=== PATIENT | female | born 1965 | race African-American/Black ===

== ENCOUNTER 2022-07-14 16:23 | Inpatient (IN) | payer OTHER ==
[~2022-07-14] VITALS: Ht 172.7 cm; Wt 67.6 kg
[2022-07-14] MEDS ORDERED: IPRATROPIUM BROMIDE (0.02%) 0.5MG/2.5ML NEB HHN STA (16:28)
[2022-07-14] MEDS ORDERED: ALBUTEROL (0.083%) 2.5MG/3ML NEB HHN STA (16:28)
[2022-07-14 17:05] LABS: CHLORIDE 107 mEq/L (98-107)
[2022-07-14 17:17] LABS: BASOPHILS % 0.2 % (0.0-2.0); EOSINOPHILS % 1.8 % (0.0-5.0); HEMATOCRIT. 34.5 % (36.0-48.0); HEMOGLOBIN. 10.8 g/dL (12.0-16.0); LYMPHOCYTES % 20.5 % (20.0-50.0); MEAN CORPUSCULAR HEMOGLOBIN 24.1 pg (28.0-32.0); MEAN PLATELET VOLUME 9.6 fl (7.4-10.4); NEUTROPHILS % 74.5 % (40.0-76.0); PLATELET 404 x1000/uL (130-400); RED BLOOD CELL COUNT 4.48 mill/uL (4.2-5.4)
[2022-07-14 17:44] LABS: BG CARBOXYHEMOGLOBIN 0.3 % (0.5-1.5); BG DEOXYHEMOGLOBIN 1.5 % (0.0-5.0); BG FRACTION INSPIRED OXYGEN 100; BG HCO3 ACT 23.2 mmol/L (22.0-26.0); BG METHEMOGLOBIN 0.4 % (0.0-1.5); BG OXYGEN SATURATION 98.5 % (92.0-98.5); BG OXYHEMOGLOBIN 97.8 % (94.0-97.0); BG PCO2 51.7 mmHg (35.0-45.0); BG PO2 159.9 mmHg (75.0-100.0); BG SAMPLE SITE RIGHT RADIAL; BG TOTAL HEMOGLOBIN 11.6 g/dL (12.0-18.0); BG VENT MODE MASK - BIPAP
[2022-07-14 18:05] LABS: PLATELET ESTIMATE SLIGHTLY INCREASED
[2022-07-14] MEDS ORDERED: VANCOMYCIN 1G PREMIX 200 ML IV SCH (18:45)
[2022-07-14] MEDS ORDERED: CEFEPIME 1,000 MG in DEXT 5% WATER 100 ML IV ONE (18:45)
[2022-07-14 19:04] LABS: CLARITY URINE CLEAR (CLEAR); COLOR URINE YELLOW (YELLOW); KETONES URINE NEGATIVE (NEGATIVE); LEUKOCYTE ESTERASE URINE 1+ (NEGATIVE); NITRITE URINE NEGATIVE (NEGATIVE); OCCULT BLOOD URINE TRACE (NEGATIVE); PH URINE 5.5 (4.5-8.0); PROTEIN URINE 2+ (NEGATIVE); SPECIFIC GRAVITY URINE 1.021 (1.005-1.030)
[2022-07-14] MEDS ORDERED: MAGNESIUM/ALUMINUM HYDROXIDE/SIMETHICONE 30ML UDC PO PRN (19:30)
[2022-07-14] MEDS ORDERED: ENOXAPARIN 40MG/0.4ML SYR SUBCUT SCH (19:30)
[2022-07-14] MEDS ORDERED: GUAIFENESIN 200MG/10ML SUGAR FREE UDC PO PRN (19:30)
[2022-07-14] MEDS ORDERED: DOCUSATE SODIUM 100MG CAPSULE PO PRN (19:30)
[2022-07-14] MEDS ORDERED: IPRATROPIUM/ALBUTEROL 0.5-3(2.5)MG/3ML NEB HHN PRN (19:30)
[2022-07-14] MEDS ORDERED: ACETAMINOPHEN 325MG TABLET PO PRN ×2 (19:30)
[2022-07-14] MEDS ORDERED: ONDANSETRON HCL 4MG/2ML INJ IV PRN (19:30)
[2022-07-14] MEDS ORDERED: ASPIRIN 325MG EC TABLET PO ONE (19:30)
[2022-07-14] MEDS ORDERED: CLONIDINE 0.1MG TABLET PO PRN (19:30)
[2022-07-14 21:31] LABS: BG BASE EXCESS -2.6 mmol/L (-2.0-2.0); BG CARBOXYHEMOGLOBIN 0.3 % (0.5-1.5); BG DEOXYHEMOGLOBIN 5.4 % (0.0-5.0); BG HCO3 ACT 22.1 mmol/L (22.0-26.0); BG METHEMOGLOBIN 0.2 % (0.0-1.5); BG OXYGEN SATURATION 94.6 % (92.0-98.5); BG OXYHEMOGLOBIN 94.1 % (94.0-97.0); BG PCO2 38.2 mmHg (35.0-45.0); BG PH 7.381 (7.350-7.450); BG PO2 80.3 mmHg (75.0-100.0); BG SAMPLE SITE RIGHT RADIAL; BG TOTAL HEMOGLOBIN 11.1 g/dL (12.0-18.0); BG VENT MODE MASK - NRB
[2022-07-15] VITALS (10 sets, daily range): BP systolic 109–149; BP diastolic 54–91
[2022-07-15] MEDS: FUROSEMIDE 40MG/4ML VIAL IV SCH ×3 (00:50→17:43)
[2022-07-15] MEDS: FAMOTIDINE 20MG TABLET PO SCH ×2 (00:51→20:41)
[2022-07-15] MEDS ORDERED: ASPIRIN 325MG EC TABLET PO NR (01:15)
[2022-07-15] MEDS ORDERED: HEPARIN 5000 UNITS/ML VIAL IV ONE (04:45)
[2022-07-15] MEDS ORDERED: HEPARIN 25,000 UNITS PREMIX 250 ML IV SCH (04:45)
[2022-07-15] MEDS ORDERED: HEPARIN BOLUS PRN aPTT 30-44 IV (04:45)
[2022-07-15] MEDS ORDERED: HEPARIN 60 UNITS/KG BOLUS IV SCH (04:45)
[2022-07-15] MEDS ORDERED: HEPARIN BOLUS PRN aPTT <30 IV (04:45)
[2022-07-15 06:23] LABS: HEMATOCRIT. 28.1 % (36.0-48.0); HEMOGLOBIN. 9.1 g/dL (12.0-16.0); MEAN CORPUSCULAR HEMOGLOBIN 24.2 pg (28.0-32.0); MEAN CORPUSCULAR VOLUME 74.4 fL (81.0-99.0); MEAN PLATELET VOLUME 9.4 fl (7.4-10.4); PLATELET 304 x1000/uL (130-400); RED BLOOD CELL COUNT 3.78 mill/uL (4.2-5.4); RED CELL DISTRIBUTION WIDTH 27.6 % (11.6-14.6)
[2022-07-15 06:33] LABS: CHLORIDE 107 mEq/L (98-107)
[2022-07-15 06:48] LABS: HDL CHOLESTEROL 63 mg/dL (40-59); LDL CHOLESTEROL 109 mg/dL (5-100); PHOSPHORUS 3.8 mg/dL (2.5-4.9); T4 FREE 1.03 ng/dL (0.76-1.46)
[2022-07-15 07:08] LABS: FOLIC ACID (FOLATE) SERUM 18.4 ng/mL (>5.38)
[2022-07-15 08:02] LABS: BG BASE EXCESS 1.5 mmol/L (-2.0-2.0); BG CARBOXYHEMOGLOBIN 0.2 % (0.5-1.5); BG HCO3 ACT 26.7 mmol/L (22.0-26.0); BG METHEMOGLOBIN 0.5 % (0.0-1.5); BG OXYHEMOGLOBIN 98.3 % (94.0-97.0); BG PCO2 44.7 mmHg (35.0-45.0); BG PH 7.394 (7.350-7.450); BG PO2 270.8 mmHg (75.0-100.0); BG SAMPLE SITE RIGHT RADIAL; BG VENT MODE MASK - NRB
[2022-07-15 08:36] LABS: INR 1.1; PROTHROMBIN TIME 11.7 sec (9.6-11.0)
[2022-07-15 08:46] LABS: CREATINE KINASE MB FRACTION 52.7 ng/mL (0.5-3.6)
[2022-07-15] MEDS: ASPIRIN 81MG EC TABLET PO SCH (09:28)
[2022-07-15 11:49] LABS: PLATELET ESTIMATE NORMAL
[2022-07-15 13:14] LABS: CREATINE KINASE MB FRACTION 36.8 ng/mL (0.5-3.6)
[2022-07-15 13:30] LABS: *AMPHETAMINES SCREEN URINE NEGATIVE (NEGATIVE); *BARBITURATES SCREEN URINE NEGATIVE (NEGATIVE); *BENZODIAZEPINES SCREEN URINE NEGATIVE (NEGATIVE); *COCAINE SCREEN URINE NEGATIVE (NEGATIVE); CANNABINOID URINE SCREEN NEGATIVE (NEGATIVE); METHADONE URINE SCREEN NEGATIVE (NEGATIVE); OPIATES URINE SCREEN NEGATIVE (NEGATIVE); PHENCYCLIDINE URINE SCREEN NEGATIVE (NEGATIVE)
[2022-07-15] MEDS: PIPERACILLIN/TAZOBACTAM 3.375 G in DEXTROSE 5% WATER 50 ML IV SCH ×3 (14:58→22:36)
[2022-07-15 21:40] LABS: CREATINE KINASE MB FRACTION 15.8 ng/mL (0.5-3.6)
[2022-07-16] VITALS (14 sets, daily range): BP systolic 107–146; BP diastolic 53–94
[2022-07-16] MEDS: PIPERACILLIN/TAZOBACTAM 3.375 G in DEXTROSE 5% WATER 50 ML IV SCH ×3 (05:52→21:26)
[2022-07-16 09:41] LABS: BASOPHILS % 0.6 % (0.0-2.0); EOSINOPHILS % 3.6 % (0.0-5.0); HEMATOCRIT. 29.6 % (36.0-48.0); HEMOGLOBIN. 9.8 g/dL (12.0-16.0); LYMPHOCYTES % 24.3 % (20.0-50.0); MEAN CORPUSCULAR HEMOGLOBIN 24.6 pg (28.0-32.0); MEAN CORPUSCULAR VOLUME 74.2 fL (81.0-99.0); MEAN PLATELET VOLUME 9.6 fl (7.4-10.4); MONOCYTES % 4.5 % (2.0-8.0); PLATELET 333 x1000/uL (130-400); RED BLOOD CELL COUNT 3.99 mill/uL (4.2-5.4); RED CELL DISTRIBUTION WIDTH 27.9 % (11.6-14.6)
[2022-07-16] MEDS: ASPIRIN 81MG EC TABLET PO SCH (09:54)
[2022-07-16] MEDS: FUROSEMIDE 40MG/4ML VIAL IV SCH ×2 (09:54→17:40)
[2022-07-16 10:21] LABS: CHLORIDE 105 mEq/L (98-107)
[2022-07-16] MEDS: FAMOTIDINE 20MG TABLET PO SCH (20:21)
[2022-07-17 03:52] VITALS: BP 121/55
[2022-07-17] MEDS: PIPERACILLIN/TAZOBACTAM 3.375 G in DEXTROSE 5% WATER 50 ML IV SCH (05:03)
[2022-07-17] MEDS: FUROSEMIDE 40MG/4ML VIAL IV SCH (05:03)
[2022-07-17 05:42] VITALS: BP 130/72
[2022-07-17 08:00] VITALS: BP 124/71
[2022-07-17] MEDS: ASPIRIN 81MG EC TABLET PO SCH (08:42)
[2022-07-17 10:00] VITALS: BP 131/75
[2022-07-17] MEDS ORDERED: ATOR80TA MT (10:13)
[2022-07-17] MEDS ORDERED: LOSA25TA3 MT (10:13)
[2022-07-17] MEDS ORDERED: FURO-151 PO (10:13)
[2022-07-17] MEDS ORDERED: SPIR25TA MT (10:13)
[2022-07-17] MEDS ORDERED: ASPI-1406 PO (10:13)
[2022-07-17 10:27] VITALS: BP 146/96
[2022-07-17 12:00] VITALS: BP 135/74
== END 2022-07-17 16:41 | disposition home or self-care (01) | DRG 871 ==
LOC: ER 16:23 → 5EST 18:21 → EDBEDREQTM 18:22 → EDBEDREQ 18:22 → EDBEDREQSVC 18:22 → ENRESERV 07-15 00:14
PROVIDERS: ADMIT Internal Medicine; ATTEND Internal Medicine
PROC: 5A09357 Assistance with Respiratory Ventilation, Less than 24 Consecutive Hours, Continuous Positive Airway Pressure (ICD-10-PCS; principal; 2022-07-14)
DX: A41.9 Sepsis, unspecified organism (principal); I21.4 Non-ST elevation (NSTEMI) myocardial infarction; J18.9 Pneumonia, unspecified organism; I50.43 Acute on chronic combined systolic (congestive) and diastolic (congestive) heart failure; J96.01 Acute respiratory failure with hypoxia; N39.0 Urinary tract infection, site not specified; E87.5 Hyperkalemia; I11.0 Hypertensive heart disease with heart failure; I25.10 Atherosclerotic heart disease of native coronary artery without angina pectoris; D50.9 Iron deficiency anemia, unspecified; R73.9 Hyperglycemia, unspecified; Z20.822 Contact with and (suspected) exposure to COVID-19; Z86.73 Personal history of transient ischemic attack (TIA), and cerebral infarction without residual deficits; Z95.1 Presence of aortocoronary bypass graft
CPT/HCPCS: 36415; 36600; 71045; 80053; 80061; 80305; 81003; 82375; 82550; 82553; 82607; 82746; 82805; 83036; 83605; 83735; 83880; 84100; 84145; 84439; 84443; 84484; 85025; 85379; 87426; 93005; 93306; 93970; 94640; 94660; 97162; 99291; C9803; J0692; J1644; J1650; J1940; J2543; J3370; J7060